=== PATIENT | male | born 1950 | race Caucasian/White ===

== ENCOUNTER 2021-12-23 12:22 | Outpatient (CLI) | payer OTHER, SELFPAY ==
--- NOTE | ~2021-12-23 | XR_ITS ---
EXAMINATION: XR chest 2V DATE: 12/23/2021 13:06 INDICATION: Shortness of breath, dry cough and chest pain TECHNIQUE: frontal and lateral views of the chest were obtained. COMPARISON: None FINDINGS: Hyperexpansion of lungs with flattening of the diaphragm suggestive but not diagnostic of COPD. No fo catie airspace opacities, pulmonary edema, pleural effusion or pneumothorax. The cardiomediastinal silh ouette is normal. Mild to moderate thoracic spondylosis. IMPRESSION: 1. Appearance suggestive but not diagnostic of COPD. No other acute cardiopulmonary disease. Reviewed, dictated and finalized at location A. IMPRESSION: 1. Appearance suggestive but not diagnostic of COPD. No other acute cardiopulmo nary disease.
[2021-12-23 12:47] LABS: Add Urine Microscopic? YES; Appearance Urine Clear (Clear); Basophils Absolute Auto 0.08 K/mm3 (0.00-0.10); Bilirubin Urine Negative (Negative); Blood Urine Negative (Negative); Color Urine Yellow (Yellow); Eosinophils Absolute Auto 0.36 K/mm3 (0.02-0.50); Eosinophils Percent Auto 4.6 % (1.0-6.0); Glucose Urine UA Negative (Negative); Hematocrit 44.1 % (37.0-46.0); Hemoglobin 14.1 g/dL (12.4-15.3); Immature Granulocyte Absolute 0.04 K/mm3 (0.00-0.00); Immature Granulocyte Percent A 0.5 % (0.0-0.0); Ketones Urine Negative (Negative); Leukocyte Esterase Ur Trace (Negative); Lymphocytes Absolute Auto 1.41 K/mm3 (1.10-4.50); Mean Corpuscular Hemoglobin 31.3 pg (27.0-31.0); Mean Platelet Volume 11.5 fl (8.7-11.0); Monocytes Absolute Auto 0.88 K/mm3 (0.10-0.90); Monocytes Percent Auto 11.2 % (2.0-11.0); Neutrophils Absolute Auto 5.1 K/mm3 (1.7-7.2); Neutrophils Percent Auto 64.7 % (50.0-70.0); Nitrate Urine Negative (Negative); Platelet Count Result 250 K/mm3 (150-420); Protein Urine Trace (Negative); Specific Grav Ur 1.015 (1.010-1.020); Urobilinogen Urine 0.2 mg/dL (0.2-1.0); White Blood Count 7.9 K/mm3 (4.8-10.8)
[2021-12-23 13:04] LABS: Bacteria Urine Trace /hpf; RBC Urine 0-2 /hpf (0-2); Squamous Epithelial Cell Urine Occasional /hpf (Few); WBC Urine 0-3 /hpf (0-3)
[2021-12-23 13:38] LABS: Alanine Aminotransferase 17 U/L (16-63); Albumin Level 3.5 g/dL (3.4-5.0); Alkaline Phosphatase 99 U/L (46-116); Anion Gap 6 mmol/L (8-16); Aspartate Amino Transferase 19 U/L (15-37); Bilirubin,Total 0.3 mg/dL (0.00-1.00); Blood Urea Nitrogen 13 mg/dL (7-18); Calcium 9.3 mg/dL (8.5-10.1); Carbon Dioxide 28 mmol/L (21-32); Chloride 103 mmol/L (98-108); Estimated Glomerular Filt Rate 48; Glucose 114 mg/dL (70-99); Osmolality Calculated 285 mOsm/kg (285-295); Potassium 4.3 mmol/L (3.5-5.1); Prostate Specific Antigen 2.7 ng/mL (< OR = 4.0); Sodium 137 mmol/L (136-145); Thyroid Stimulating Hormone 3.72 uIU/mL (0.36-3.74); Total Protein 7.5 g/dL (6.4-8.2)
[2021-12-23 14:44] LABS: Creatinine Urine 98.99 mg/dL (40-278); MALB Creatinine Ratio 96.1 mg/g (0-30); Microalbumin Urine Random 95.2 mg/L
[2021-12-25 19:05] LABS: Hemoglobin A1C 6.2 % (<5.7)
== END 2021-12-23 12:23 | disposition home or self-care (01) ==
LOC: CHSLAB 12:29
PROVIDERS: PCP Family Medicine; Visit Provider Family Medicine
DX: R53.83 Other fatigue (principal); Z12.5 Encounter for screening for malignant neoplasm of prostate; R07.9 Chest pain, unspecified; R09.89 Other specified symptoms and signs involving the circulatory and respiratory systems; R73.9 Hyperglycemia, unspecified
CPT/HCPCS: 36415; 71046; 80053; 81001; 82043; 83036; 84153; 84443; 85025; G0103

== ENCOUNTER 2021-12-24 13:47 | Outpatient (CLI) | payer OTHER, SELFPAY ==
--- NOTE | ~2021-12-24 | US_ITS ---
EXAMINATION: US arterial ankle brachial ind DATE: 12/24/2021 15:27 INDICATION: Absent pedal pulses TECHNIQUE: Segmental pressures and plethysmographic and Doppler waveforms of the brachial and lower e xtremity arteries were obtained. COMPARISON: None. FINDINGS: Right and left brachial artery pressures of 167 mm Hg and 180 mm Hg, respectively, are concordant (no rmal difference <= 30 mmHg). The right ankle-brachial index (JACKELIN) is 0.57 (normal >= 0.9-1.0). The right great toe-brachial index (TBI) is 0.36 (normal >= 0.65). Arterial Doppler waveforms are triphasic at the right common femoral artery and biphasic in the more distal arteries with brisk systolic upstrokes throughout with brisk s ystolic upstrokes at both right posterior tibial and dorsalis pedis arteries. The left JACKELIN is 0.73. The left TBI is 0.47. Arterial Doppler waveforms are biphasic with brisk systol ic upstrokes throughout the arteries of the left lower limb. IMPRESSION: 1. Arterial occlusive disease to the bilateral lower limbs with moderately decreased right and mild t o moderately decreased left ABIs and TBIs. Reviewed, dictated and finalized at location A. IMPRESSION: 1. Arterial occlusive disease to the bilateral lower limbs with moderately decr eased right and mild to moderately decreased left ABIs and TBIs.
== END 2021-12-24 13:48 | disposition home or self-care (01) ==
LOC: CHSIMG 13:48
PROVIDERS: PCP Family Medicine; Visit Provider Family Medicine
DX: R09.89 Other specified symptoms and signs involving the circulatory and respiratory systems (principal); R07.9 Chest pain, unspecified
CPT/HCPCS: 93922

== ENCOUNTER 2022-01-08 08:47 | Outpatient (CLI) | payer OTHER, SELFPAY ==
--- NOTE | ~2022-01-08 | CT_ITS ---
EXAMINATION: CT lung screening DATE: 01/08/2022 09:20 INDICATION: Personal history of nicotine dependence, current pipe smoker TECHNIQUE: Computed tomography (CT) of the chest was performed without intravenous contrast. The dose -length product (DLP) was 99.60 mGy-cm. Automated exposure control and iterative reconstruction techn ique were employed. COMPARISON: None FINDINGS: There is mild emphysema. There is a 2 mm nodule in the left upper lobe. The lungs are free of acute opacities. No pleural effusion or pneumothorax. The heart size is normal. There is bilateral gynecomastia, left greater than right. There is a lymph node of the left axilla with apparent eccent claire thickening. There is mild thoracic spondylosis. Calcified coronary artery atherosclerosis is note d. 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 IMPRESSION: 1. Lung-RADS category 2S: Benign appearance or behavior. Continue annual screening with noncontrast l ow-dose chest CT in 12 months. 2. Eccentric thickening of a lymph node in the left axilla. Correlate for history of recent COVID vac cination or evidence of upper extremity infection. Clinical follow-up is recommended. Reviewed, dictated and finalized at location B. IMPRESSION: 1. Lung-RADS category 2S: Benign appearance or behavior. Continue annual screen ing with noncontrast low-dose chest CT in 12 months. 2. Eccentric thickening of a lymph node in the left axilla. Correlate for histo ry of recent COVID vaccination or evidence of upper extremity infection. Clinic al follow-up is recommended.
== END 2022-01-08 08:48 | disposition home or self-care (01) ==
LOC: CHSIMG 08:54
PROVIDERS: PCP Family Medicine; Visit Provider Family Medicine
DX: Z12.2 Encounter for screening for malignant neoplasm of respiratory organs (principal); Z87.891 Personal history of nicotine dependence
CPT/HCPCS: 71271

== ENCOUNTER 2022-04-04 14:23 | Outpatient (CLI) | payer OTHER, SELFPAY ==
--- NOTE | ~2022-04-04 | XR_ITS ---
EXAMINATION: XR pelvis 1-2V INDICATION: Pelvic pain after fall TECHNIQUE: Two views of the pelvis are obtained. COMPARISON: None available FINDINGS: Bone alignment is normal. There is no fracture. There is mild osteoarthritis of the hips. C alcified atherosclerosis is noted. There are phleboliths of the pelvis. IMPRESSION: 1. No acute osseous abnormality. Reviewed, dictated and finalized at location A. LINE OPERATOR
--- NOTE | ~2022-04-04 | XR_ITS ---
EXAMINATION: XR femur RT min 2V INDICATION: Right femur pain TECHNIQUE: Two views of the right femur are obtained on four radiographs. COMPARISON: None available FINDINGS: Bone alignment is normal. There is no fracture. There is calcified atherosclerosis. Mild os teoarthritis is noted in the hip and knee. There is chondrocalcinosis in the lateral compartment of t he knee. IMPRESSION: 1. No acute osseous abnormality. Reviewed, dictated and finalized at location A. YARD OPERATOR
--- NOTE | ~2022-04-04 | XR_ITS ---
EXAMINATION: XR hip RT min 2V DATE: 04/04/2022 15:36 INDICATION: Right hip pain TECHNIQUE: Two views of right hip were obtained. COMPARISON: None. FINDINGS: Bone alignment is normal. There is no fracture. There is mild osteoarthritis of the hip. Ca lcified atherosclerosis noted. There are phleboliths of the pelvis. IMPRESSION: 1. Mild osteoarthritis without acute osseous abnormality. Reviewed, dictated and finalized at location A. RVENTIONAL PAIN PHYSICIAN
--- NOTE | ~2022-04-04 | XR_ITS ---
XR lumbar spine 2-3V 04/04/2022 15:35 Indication: Low back pain Procedure: 3 views lumbar spine Comparison: No prior studies for comparison. Findings: There is disc narrowing at all lumbar levels. Small ventral osteophytes at multiple levels. There is facet hypertrophy at L4-5 and L5-S1. No acute fracture, subluxation or spondylolisthesis. T here is atherosclerosis of the abdominal aorta. Impression: 1: No acute abnormality of the lumbar spine. 2: Moderate-severe lumbar spondylosis. Reviewed, dictated and finalized at location A. KERCHIEF PRESSER Impression: 1: No acute abnormality of the lumbar spine. 2: Moderate-severe lumbar spondylosis.
[2022-04-04 14:39] LABS: Basophils Absolute Auto 0.09 K/mm3 (0.00-0.10); Eosinophils Percent Auto 2.3 % (1.0-6.0); Immature Granulocyte Absolute 0.03 K/mm3 (0.00-0.00); Immature Granulocyte Percent A 0.3 % (0.0-0.0); Lymphocytes Absolute Auto 1.55 K/mm3 (1.10-4.50); Lymphocytes Percent Auto 17.9 % (18.0-42.0); Mean Corpuscular HGB Conc 32.6 g/dL (32.0-36.0); Mean Corpuscular Volume 101.3 fL (78.0-102.0); Mean Platelet Volume 11.6 fl (8.7-11.0); Monocytes Absolute Auto 0.98 K/mm3 (0.10-0.90); Monocytes Percent Auto 11.3 % (2.0-11.0); Neutrophils Absolute Auto 5.8 K/mm3 (1.7-7.2); Neutrophils Percent Auto 67.2 % (50.0-70.0); Platelet Count Result 207 K/mm3 (150-420); Red Blood Count 4.54 M/mm3 (4.70-6.10); Red Cell Distribution Width 14.1 % (11.6-14.4); White Blood Count 8.7 K/mm3 (4.8-10.8)
[2022-04-04 15:26] LABS: Alanine Aminotransferase 19 U/L (16-63); Albumin Level 3.9 g/dL (3.4-5.0); Alkaline Phosphatase 111 U/L (46-116); Anion Gap 11 mmol/L (8-16); Aspartate Amino Transferase 22 U/L (15-37); Bilirubin,Total 0.3 mg/dL (0.00-1.00); Blood Urea Nitrogen 27 mg/dL (7-18); Calcium 9.1 mg/dL (8.5-10.1); Carbon Dioxide 27 mmol/L (21-32); Chloride 104 mmol/L (98-108); Estimated Glomerular Filt Rate 48; Glucose 93 mg/dL (70-99); Osmolality Calculated 299 mOsm/kg (285-295); Potassium 4.5 mmol/L (3.5-5.1); Sodium 142 mmol/L (136-145); Total Protein 7.7 g/dL (6.4-8.2)
== END 2022-04-04 14:24 | disposition home or self-care (01) ==
LOC: CHSLAB 14:25
PROVIDERS: PCP Family Medicine; Visit Provider Family Medicine
DX: R53.83 Other fatigue (principal); M79.604 Pain in right leg; M54.41 Lumbago with sciatica, right side
CPT/HCPCS: 36415; 72100; 72170; 73502; 73552; 80053; 85025

== ENCOUNTER 2022-04-16 16:02 | Outpatient (RCR) | payer OTHER, SELFPAY ==
--- NOTE | 2022-04-16 16:58 | PTOPEVAL1 ---
Assessment and note entered by JT File, PT Evaluation Information Assessment Status Evaluation Diagnosis abnormal gait, frequent falls Onset 04/12/22 Subjective Information patient reports he is having trouble with his legs . he reports his legs give out on him, and he continues to fall. he reports he did fall this morning, and has fallen several times this month. he reports he lives with friends. he reports he had xrays, but revealed no broken bones. he reports he uses a cane to walk, but reports he did order a walker. he reports he has been falling for about a year. he reports no change in his medical history. he reports he takes no medications. he reports he feels his knees will be what gives out on him. he reports he has pain in the knees. he reports he has popping and snapping in the knees. he reports he does have steps to ambulate at home (3 going into the house, and none inside the home). Reported Pain Level Pain Score 10: Self Report Assessment PT Clinical Summary mr. barksdale is a 72 yo man who presents to skilled PT services with unsteady gait, poor balance, and weakness of the legs. he has had several falls this month. he presents with a high fall risk per the tinetti, weakness in the bilateral LE's, and unsteady gait with a FWW. he would do well to attend skilled PT to improve his objective/ functional deficits and improve his balance, safety, stability, and strength. Plan of Care Interventions Gait Training,Neuro Re-education,Patient/Caregiver Educati,Therapeutic Activities,Therapeutic Exercise PT Services Indicated Yes Treatment Frequency and 2x weekly for 8 visits Duration These treatments will address the objective and functional deficits as defined above. The patient will be advanced safely and appropriately in order for the patient to progress towards his/her prior level of function. Additional exercises will be introduced and as well as a comprehensive home exercise program upon discharge, if needed, ?to ensure carryover of functional gains achieved in the clinic. This treatment plan has been reviewed and agreement upon by the patient.
--- NOTE | 2022-05-22 22:21 | BUPTOPEVAL1 ---
Assessment and note entered by JT File, PT Evaluation Information Assessment Status Progress Diagnosis abnormal gait, frequent falls Onset 04/12/22 Subjective Information patient has not been to therapy since mid april . 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 Reported Pain Level Pain Score 8: Self Report Assessment PT Clinical Summary mr. barksdale returns to skilled PT after a few weeks away. he has shown improvement in his LE strength, 5x sit to stand time, and tinetti balance assessment. however, he continues to display weakness in the LE's, high fall risk, and decreased safety/independence with transfers/ ambulation. he would do well to continue skilled PT with remaining visits left on his initial POC. Plan of Care Interventions Gait Training,Neuro Re-education,Patient/Caregiver Educati,Therapeutic Activities,Therapeutic Exercise PT Services Indicated Yes Treatment Frequency and continue skilled PT 2x weekly with remaining Duration visits left on initial POC These treatments will address the objective and functional deficits as defined above. The patient will be advanced safely and appropriately in order for the patient to progress towards his/her prior level of function. Additional exercises will be introduced and as well as a comprehensive home exercise program upon discharge, if needed, ?to ensure carryover of functional gains achieved in the clinic. This treatment plan has been reviewed and agreement upon by the patient.
--- NOTE | 2022-06-17 15:01 | PTOPDC ---
Assessment and note entered by JT File, PT Evaluation Information Assessment Status Re-evaluation Diagnosis abnormal gait, frequent falls Onset 04/12/22 Subjective Information mr. barksdale reports he feels alright this date. he reports no pain. however, he reports having intense pain in the R knee yesterday and randomly at times that will make his knee give out on him. he reports he has fallen due to his knee giving out. Reported Pain Level Pain Score 0: Self Report Assessment PT Clinical Summary mr. barksdale presents to skilled PT for his 8th skilled therapy visit. he has met goals for improved LE strength, and improved balance/safety per the tinetti and TUG. however, he continues to have falls due to pain in the R knee. the most appropriate plan for abner at this time is to DC skilled PT interventions, continue with HEP independent at home, and seek ortho specialty care for his R knee issues. resolving these will decrease his fall risk and improve his overall safety and functional activity performance. Plan of Care Treatment Frequency and DC to independent HEP and seek ortho consult Duration
== END 2022-06-17 15:50 | disposition home or self-care (01) ==
LOC: CHSPT 16:02
PROVIDERS: PCP Family Medicine; Visit Provider Family Medicine
DX: R26.9 Unspecified abnormalities of gait and mobility (principal)
CPT/HCPCS: 97110; 97116; 97161; 97530; 97750

== ENCOUNTER 2024-02-24 11:12 | Outpatient (CLI) | payer OTHER, SELFPAY ==
--- NOTE | ~2024-02-24 | XR_ITS ---
XR knee RT 3V 02/24/2024 11:51 Indication: Right knee pain Procedure: 3 views right knee Comparison: No prior studies for comparison. Findings: Mild osteoarthritis of the right knee. There is chondrocalcinosis. No fracture, subluxation or dislocation. No significant joint effusion. Impression: 1: Mild osteoarthritis of the right knee with chondrocalcinosis. Reviewed, dictated and finalized at location B. Impression: 1: Mild osteoarthritis of the right knee with chondrocalcinosis.
--- NOTE | ~2024-02-24 | XR_ITS ---
XR shoulder RT min 2V 02/24/2024 11:50 Indication: Right shoulder pain Procedure: 4 views right shoulder Comparison: No prior studies for comparison. Findings: Mild polyarticular osteoarthritis of the right shoulder. No fracture, subluxation or disloc ation. No foreign bodies. There are healed right third and fourth rib fractures. Impression: 1: Mild polyarticular osteoarthritis of the right shoulder. Reviewed, dictated and finalized at location B. Impression: 1: Mild polyarticular osteoarthritis of the right shoulder.
[2024-02-24 11:31] LABS: Basophils Absolute Auto 0.08 K/mm3 (0.00-0.10); Basophils Percent Auto 0.9 % (0.0-1.0); Eosinophils Absolute Auto 0.14 K/mm3 (0.02-0.50); Eosinophils Percent Auto 1.6 % (1.0-6.0); Hematocrit 49.3 % (37.0-46.0); Hemoglobin 16.2 g/dL (12.4-15.3); Immature Granulocyte Absolute 0.03 K/mm3 (0.00-0.00); Immature Granulocyte Percent A 0.3 % (0.0-0.0); Lymphocytes Absolute Auto 1.69 K/mm3 (1.10-4.50); Mean Corpuscular HGB Conc 32.9 g/dL (32-36); Mean Corpuscular Hemoglobin 31.8 pg (27.0-31.0); Mean Corpuscular Volume 96.9 fL (78.0-102.0); Mean Platelet Volume 10.7 fl (8.7-11.0); Monocytes Absolute Auto 0.79 K/mm3 (0.10-0.90); Monocytes Percent Auto 8.9 % (2.0-11.0); Neutrophils Absolute Auto 6.18 K/mm3 (1.70-7.20); Neutrophils Percent Auto 69.3 % (50.0-70.0); Platelet Count Result 201 K/mm3 (150-420); Red Blood Count 5.09 M/mm3 (4.70-6.10); Red Cell Distribution Width 13.5 % (11.6-14.4); White Blood Count 8.9 K/mm3 (4.8-10.8)
[2024-02-24 12:31] LABS: Add Urine Microscopic? YES; Appearance Urine Clear (Clear); Bilirubin Urine Negative (Negative); Blood Urine Trace-intact (Negative); Color Urine Yellow (Yellow); Glucose Urine UA Negative (Negative); Ketones Urine Negative (Negative); Leukocyte Esterase Ur Trace (Negative); Nitrate Urine Negative (Negative); Protein Urine 2+ (Negative); Specific Grav Ur 1.015 (1.010-1.020); Urobilinogen Urine 0.2 mg/dL (0.2-1.0)
[2024-02-24 12:50] LABS: Bacteria Urine Rare /hpf; RBC Urine None seen /hpf (0-2); WBC Urine 0-3 /hpf (0-3)
[2024-02-24 12:54] LABS: Creatinine Urine 68.88 mg/dL (40-278)
[2024-02-24 12:56] LABS: MALB Creatinine Ratio 580.7 mg/g (0-30); Microalbumin Urine Random > 400.0 mg/L
[2024-02-24 12:57] LABS: Alanine Aminotransferase 19 U/L (16-63); Albumin Level 3.6 g/dL (3.4-5.0); Alkaline Phosphatase 108 U/L (46-116); Anion Gap 11 mmol/L (4-12); Aspartate Amino Transferase 20 U/L (15-37); Bilirubin,Total 0.4 mg/dL (0.00-1.00); Blood Urea Nitrogen 21 mg/dL (7-18); Calcium 9.1 mg/dL (8.5-10.1); Carbon Dioxide 26 mmol/L (21-32); Chloride 103 mmol/L (98-108); Estimated Glomerular Filt Rate 59; Glucose 105 mg/dL (70-99); Osmolality Calculated 293 mOsm/kg (285-295); Potassium 4.6 mmol/L (3.5-5.1); Sodium 140 mmol/L (136-145); Thyroid Stimulating Hormone 2.93 uIU/mL (0.36-3.74); Total Protein 7.3 g/dL (6.4-8.2)
[2024-02-29 16:27] LABS: Hemoglobin A1C 6.4 % (<5.7)
== END 2024-02-24 11:13 | disposition home or self-care (01) ==
LOC: CHSLAB 11:17
PROVIDERS: PCP Family Medicine; Visit Provider Family Medicine
DX: R73.9 Hyperglycemia, unspecified (principal); J81.1 Chronic pulmonary edema; I73.9 Peripheral vascular disease, unspecified; M19.011 Primary osteoarthritis, right shoulder; M17.11 Unilateral primary osteoarthritis, right knee; M11.261 Other chondrocalcinosis, right knee; I10 Essential (primary) hypertension
CPT/HCPCS: 36415; 73030; 73562; 80053; 81001; 82043; 83036; 84443; 85025

== ENCOUNTER 2024-03-15 08:07 | Outpatient (RCR) | payer OTHER, SELFPAY ==
--- NOTE | 2024-03-15 10:15 | PTOPEVAL1 ---
Assessment and note entered by Ayanna Calix DPT Evaluation Information Assessment Status Evaluation Diagnosis R shoulder pain, R knee pain ICD-10 Condition Codes (PT) M25.511,M25.561 Onset 02/25/24 Subjective Information Patient reports he has R knee and shoulder pain. He reports knee pain is worse. He reports knee pain is chronic and the shoulder pain started about 6-7 months ago. He reports his shoulder started hurting after he was pushing up on the walker and feels like a pulled muscle . He reports the knee pain is arthritis. He reports knee pain is worse with walking, getting up out of a chair, and going down stairs. He reports shoulder pain is constant and worse when he reaches away from his body. He uses a FWW and has some stumbles but has not fallen. Reported Pain Level Pain Score 8,0: Self Report Assessment PT Clinical Summary Mr. Mills is a 73 year old male who presents to PT with R shoulder and knee pain. He demonstrates decreased R knee and shoulder ROM, decreased R knee and shoulder strength, and impaired gait impairing his ability to get up out of a chair, descend stairs, reach out for objects around the home and ambulate prolonged distances. He would benefit from skilled PT to address impairments and return to PLOF. Plan of Care Interventions Electrical Stimulation,Gait Training,Hot Pack/Cold Pack,Manual Therapy,Neuro Re-education,Patient/ Caregiver Educati,Therapeutic Activities, Therapeutic Exercise PT Services Indicated Yes Treatment Frequency and 3x weekly for 12 visits Duration These treatments will address the objective and functional deficits as defined above. The patient will be advanced safely and appropriately in order for the patient to progress towards his/her prior level of function. Additional exercises will be introduced and as well as a comprehensive home exercise program upon discharge, if needed, ?to ensure carryover of functional gains achieved in the clinic. This treatment plan has been reviewed and agreement upon by the patient.
--- NOTE | 2024-03-24 08:30 | PCPTNOTE ---
Cancelled session. No reason given.
--- NOTE | 2024-03-28 07:39 | PCPTNOTE ---
Cancelled session due to sick child and no ride.
--- NOTE | 2024-04-11 09:24 | PCPTNOTE ---
Cancelled session. Ride is in the ER.
--- NOTE | 2024-04-22 07:08 | PCPTNOTE ---
Cancelled session due to another appointment.
--- NOTE | 2024-04-28 10:25 | PCPTNOTE ---
Pt. did not show for his scheduled appointment on this date.
--- NOTE | 2024-05-16 09:19 | PCPTNOTE ---
Pt. did not show for his scheduled appointment on this date. He has note contacted the clinic
--- NOTE | 2024-05-17 10:54 | PCPTNOTE ---
Patient did not show up for scheduled appointment this date.
== END 2024-06-13 23:59 | disposition home or self-care (01) ==
LOC: CHSPT 08:07
PROVIDERS: Visit Provider Family Medicine
DX: M25.561 Pain in right knee (principal); M25.511 Pain in right shoulder
CPT/HCPCS: 97110; 97161; 97530

== ENCOUNTER 2024-03-17 13:48 | Outpatient (CLI) | payer OTHER, SELFPAY ==
--- NOTE | 2024-03-17 13:52 | ECHO_ITS ---
Patient Info Name: Jacinto Mills Age: 73 years : 1950 Gender: Male Ht: 69 in Wt: 190 lbs BSA: 2.07 m2 HR: 70 bpm Heart Rhythm: Sinus Rhythm Technical Quality: Good Exam Date: 03/17/2024 2:52 PM Exam Location: Echo Lab Patient Status: Outpatient Admit Date: 03/17/2024 Staff Ordering Physician: Abdulkadir Canela MD Grinder Set Up Operator External: Isi Munoz RDCS Attending Provider: Abdulkadir Canela MD Referring Physician: Rola MALHOTRA; Exam Type: CA echo doppler color flow Study Info Indications - LVH Complete two-dimensional, color flow and Doppler transthoracic echocardiogram is performed. Summary 1. Complete two-dimensional, color flow and Doppler transthoracic echocardiogram is performed. 2. Left ventricular chamber dimension is normal. 3. Left ventricular systolic function is normal, estimated at 60-65%. 4. There is mild concentric increased left ventricular wall thickness. 5. The left ventricular diastolic function is grade I diastolic dysfunction. 6. E/e' 9 is minimally elevated. 7. Left atrial chamber dimension is mildly enlarged. 8. There is mild aortic valve sclerosis. 9. The mitral valve has mildly calcified annulus. 10. There is mild mitral valve regurgitation. 11. There is trace tricuspid valve regurgitation. 12. No pulmonary hypertension, estimated pulmonary arterial systolic pressure is 31 mmHg. Left Ventricle E/e' 9 is minimally elevated. Left ventricular chamber dimension is normal. Left ventricular systolic function is normal, estimated at 60-65%. There is mild concentric increased left ventricular wall thickness. The left ventricular diastolic function is grade I diastolic dysfunction. Right Ventricle Right ventricular systolic function is normal and with normal TAPSE 2.6 cm. Right ventricular chamber dimension is normal. Left Atria Left atrial chamber dimension is mildly enlarged. Right Atria Right atrial chamber dimension is normal. Aortic Valve The aortic valve is trileaflet. There is mild aortic valve sclerosis. There is no aortic valve stenosis. There is no aortic valve regurgitation. Pulmonic Valve There is no pulmonic regurgitation. Mitral Valve The mitral valve has mildly calcified annulus. There is no mitral valve stenosis. There is mild mitral valve regurgitation. Tricuspid Valve There is trace tricuspid valve regurgitation. No pulmonary hypertension, estimated pulmonary arterial systolic pressure is 31 mmHg. Pericardium/Pleural There is no pericardial effusion. Inferior Vena Cava Normal inferior vena cava with >50% collapse upon inspiration consistent with normal right atrial pressure, 5 mmHg. Aorta The aortic root size at the sinus of Valsalva is normal. Left Ventricular Outflow Tract Name Value Normal LVOT 2D LVOT Diameter 2.0 cm LVOT Doppler LVOT Peak Velocity 88 cm/s LVOT Peak Gradient 3 mmHg LVOT Mean Gradient 2 mmHg LVOT VTI 16 cm LVOT VTI/AV VTI Ratio 0.7 LVOT Stroke Volume 52 ml Mitral Valve Name Value Normal MV Doppler MV Decel Meade 279 cm/s2 MV PHT 57 ms MV Area (PHT) 3.8 cm2 4.0-5.0 MV Regurgitation Doppler MR Peak Gradient 49 mmHg MV Diastolic Function MV E Peak Velocity 55 cm/s MV A Peak Velocity 97 cm/s MV E/A 0.6 MV Decel Time 198 ms Tricuspid Valve Name Value Normal TV Regurgitation Doppler TR Peak Velocity 253 cm/s TR Peak Gradient 23 mmHg Estimated PAP/RSVP RA Pressure 5 mmHg <=5 PA Systolic Pressure 31 mmHg <36 RV Systolic Pressure 31 mmHg <36 Aortic Valve Name Value Normal AV Doppler AV Peak Velocity 101 cm/s AV Peak Gradient 4 mmHg AV Mean Gradient 3 mmHg AV VTI 22 cm AV Area (Cont Eq VTI) 2.3 cm2 >=3.0 AV Area (Cont Eq Andrew) 2.9 cm2 AV V1/V2 Ratio 0.88 AV Regurgitation 2D LVOT Area 3.3 cm2 Ventricles Name Value Normal LV Dimensions 2D/MM IVS Diastolic Thickness (2D) 1.4 cm 0.6-1.0 LVID Diastole (2D) 3.9 cm 4.2-5.8 LVIW Diastolic Thickness (2D) 1.4 cm 0.6-1.0 LVID Systole (2D) 2.7 cm 2.5-4.0 LVOT Diameter 2.0 cm LV Mass (2D Cubed) 201.98 g 88.00-224.00 LV Mass Index (2D Cubed) 98 g/m2 49-115 Relative Wall Thickness (2D) 0.71 LV Fractional Shortening/Ejection Fraction 2D/MM LV Fractional Shortening (2D) 32 % 25-43 LV EF (2D Teicholz) 60 % 52-72 LV Diastolic Volume (4C MOD) 85 ml LV EF (4C MOD) 61 % LV Diastolic Volume (2C MOD) 93 ml LV EF (2C MOD) 65 % LV Diastolic Volume (BP MOD) 90 ml 62-150 LV Diastolic Volume Index (BP MOD) 43 ml/m2 34-74 LV Systolic Volume (BP MOD) 33 ml 21-61 LV Systolic Volume Index (BP MOD) 16 ml/m2 11-31 LV EF (BP MOD) 63 % 52-72 LV Diastolic Length (4C) 8.0 cm LV Systolic Length (4C) 6.4 cm LV Stroke Volume (4C MOD) 52 ml Atria Name Value Normal LA Dimensions LA Volume (4C A-L) 44 ml LA Volume (BP A-L) 49 ml RA Dimensions RA Area (4C) 15.1 cm2 <=18.0 Report Signatures
== END 2024-03-17 13:49 | disposition home or self-care (01) ==
LOC: CHSIMG 13:49
PROVIDERS: PCP Family Medicine; Visit Provider Family Medicine
DX: I50.1 Left ventricular failure, unspecified (principal); I34.0 Nonrheumatic mitral (valve) insufficiency
CPT/HCPCS: 93306

== ENCOUNTER 2024-03-23 15:27 | Outpatient (CLI) | payer OTHER, SELFPAY ==
--- NOTE | ~2024-03-23 | US_ITS ---
EXAMINATION: US arterial ankle brachial ind DATE: 03/23/2024 16:00 INDICATION: Peripheral arterial disease. TECHNIQUE: Segmental pressures and plethysmographic and Doppler waveforms of the brachial and lower e xtremity arteries were obtained. COMPARISON: ABIs 12/24/21 FINDINGS: Right and left brachial artery pressures of 192 mm Hg and 192 mm Hg, respectively, are concordant (no rmal difference <= 30 mmHg). The right ankle-brachial index (JACKELIN) is 0.53 (normal >= 0.9-1.0). The right great toe-brachial index (TBI) is 0.34 (normal >= 0.65). Arterial Doppler waveforms are monophasic at the ankle. The left JACKELIN is 0.52. The left TBI is 0.88. Arterial Doppler waveforms are monophasic at the ankle. IMPRESSION: 1. Moderately decreased ABIs with worsening from 12/24/2021, consistent with arterial occlusive diseas e. Reviewed, dictated and finalized at location A. ACCOUNTANT IMPRESSION: 1. Moderately decreased ABIs with worsening from 12/24/2021, consistent with art erial occlusive disease.
== END 2024-03-23 15:28 | disposition home or self-care (01) ==
PROVIDERS: PCP Family Medicine; Visit Provider Family Medicine
DX: I10 Essential (primary) hypertension (principal); M79.89 Other specified soft tissue disorders; I73.9 Peripheral vascular disease, unspecified
CPT/HCPCS: 93922